=== PATIENT | female | born 1995 | race Caucasian/White ===

== ENCOUNTER 2022-07-08 02:42 | Outpatient (CLI) | payer MEDICAID, OTHER ==
[~2022-07-08] VITALS: Ht 149.9 cm; Wt 59.5 kg
[2022-07-08 02:30] VITALS: BP 117/68
[~2022-07-08 02:42] MED LIST: CETI10CA PO
[2022-07-08 03:04] LABS: BILIRUBIN,URINE NEGATIVE (NEGATIVE); CLARITY,URINE CLEAR; COLOR,URINE YELLOW; GLUCOSE, URINE (UA) NEGATIVE (NEGATIVE); KETONES,URINE NEGATIVE (NEGATIVE); LEUKOCYTE ESTERASE ,URINE 1+ (NEGATIVE); NITRITE,URINE NEGATIVE (NEGATIVE); PROTEIN,URINE NEGATIVE (NEGATIVE)
[2022-07-08 03:05] VITALS: BP 117/68
[2022-07-08 03:14] LABS: WBC,URINE 0-2 /HPF
[2022-07-08 03:15] LABS: BACTERIA,URINE TRACE /HPF
[2022-07-08] MEDS ORDERED: LACTATED RINGERS 1,000 ML IV ONE (03:30)
[2022-07-08 03:35] VITALS: BP 106/51
[2022-07-08] MEDS ORDERED: FAMO40TA72 PO (03:46)
[2022-07-08] MEDS ORDERED: NITR-65 PO (03:46)
[2022-07-08] MEDS ORDERED: METO-310 PO (03:46)
[2022-07-08] MEDS ORDERED: CITA20TA12 PO (03:46)
[2022-07-08] MEDS ORDERED: METR375C PO (03:46)
[2022-07-08 03:50] VITALS: BP 112/60
--- NOTE | 2022-07-09 08:32 | Physician Query-Final Dx ---
JOON07/09/22 0832: Clinic Account Progress/Dx Physician Query: Please give diagnosis Please include # weeks gestation Date of Service Jul 08, 2022 at 02:42 JOSSELINE HALL MD 07/09/22 1614: Clinic Account Progress/Dx DIAGNOSIS: Diagnosis Third trimester 33 weeks gestation Subjective contractions, no regular contractions during monitoring, cervix closed JOON,AugJul 09, 2022 08:32 JOSSELINE HALL MD Jul 09, 2022 16:14
== END 2022-07-08 04:40 | disposition home or self-care (01) ==
LOC: WSo 02:42 → LDRP 02:42 → WSo 04:40
PROVIDERS: ATTEND Family Medicine
DX: O47.03 False labor before 37 completed weeks of gestation, third trimester (principal); Z3A.33 33 weeks gestation of pregnancy
CPT/HCPCS: 81000; 87088

== ENCOUNTER 2022-08-15 05:36 | Outpatient (CLI) | payer MEDICAID ==
[~2022-08-15] VITALS: Ht 149.9 cm; Wt 59.5 kg
[~2022-08-15 05:36] MED LIST changes: +CITA20TA12 PO; +FAMO40TA72 PO; +METO-310 PO; +METR375C PO; +NITR-65 PO
== END 2022-08-15 14:12 | disposition home or self-care (01) ==
LOC: PREOP 05:36
PROVIDERS: ATTEND Obstetrics & Gynecology
DX: Z01.818 Encounter for other preprocedural examination (principal)

== ENCOUNTER 2022-08-22 05:36 | Inpatient (IN) | payer MEDICAID ==
[2022-08-22] VITALS (10 sets, daily range): BP systolic 11–131; BP diastolic 56–84
[~2022-08-22] VITALS: Ht 149.9 cm; Wt 61.6 kg
--- OUTSIDE RECORDS SUMMARY | 2022-08-22 05:39 | XMS REPORT | Clinical Summary ---
Author Author [facility] Organization [facility] Address Unknown Phone Unavailable Care Team Providers Care Talent Acquisition Associate Name Role Phone Alyse Hsieh MD PCP Allergies Comments Active Allergy Reactions Severity Noted Date Adhesive 08/11/2018 Sulfamethoxazole-Trimetho Hives 08/11/2018 prim Topiramate 05/27/2022 Tramadol Hives 08/11/2018 Medications End Date Status Medication Sig Dispensed Refills Start Date Active cetirizine (ZYRTEC) 10 MG Take 1 tablet 0 04/26 tablet (10 mg total) 2 by mouth daily. Active citalopram (CELEXA) 20 mg Take 1 tablet 0 04/26 tablet (20 mg total) 2 by mouth daily. Active famotidine (PEPCID) 40 MG Take 1 tablet 0 02/24 tablet (40 mg total) 2 by mouth daily. Active metroNIDAZOLE (FLAGYL) Take 1 tablet 14 tablet 0 1 500 MG tablet (500 mg 2 total) by mouth 2 (two) times a day. Active nitrofurantoin, Take 1 20 capsule 0 macrocrystal-monohydrate, capsule (100 2 (MACROBID) 100 MG capsule mg total) by mouth 2 (two) times a day. Active OMEPRAZOLE ORAL Take by 0 mouth. Active metoclopramide (REGLAN) 0 10 MG tablet 2 Active Problems Problem Noted Date Dysuria 03/30/2020 Last Assessment & Plan: Formatting of t his note might be different from the original. Recurrent. -03/30/2020 UA suspicious for UTI. Urine test negative. -03/30/2020 CBC positive for leukocytosis . -Dysuria with left flank pain, at risk for upper UTI. -03/30/2020 renal function and liver enzy me levels WNL. Plan: -Start cefdinir twice daily for 14 days with lactobacillus probiotics. -Pending chlamydia/gonorrhea PCR. -03/30/2020 ECG no QTc prolongation in ca se needing to switch to fluoroquinolones due to future antibiot ic susceptibility. -Urology referral due to her frequent U TI symptoms. At risk for prolonged QT interval syndrome 0 Frequent UTI 03/30/2020 Counseling for control, oral contraceptives Nexplanon removal 02/08/2020 control counseling 08/11/2018 Nexplanon insertion 08/11/2018 Vasovagal syncope 07/02/2016 Fatigue 09/29/2015 Depression 04/07/2015 Asthma 08/30/2006 Estimated Date of Delivery Comments Yes 08/24/2022 Encounters Care Team Description Date Type Specialty Freddie Powers MD Threatened labor (Primary Dx) 07/08/2022 Emergency Emergency Medicine Jaime Ferraro MD Asymptomatic bacteriuria during pregnanc y in third trimester (Primary Dx); Trichimoniasis 07/03/2022 Emergency Emergency Medicine Jaime Ferraro MD Dental caries (Primary Dx) 05/27/2022 Emergency Emergency Medicine from Last 3 Months Family History Medical History Relation Name Comments Lung cancer Maternal Grandmother Cervical cancer Mother Relation Name Status Comments Maternal Grandmother Mother Alive Social History Date Tobacco Use Types Packs/Day Years Used Smoking Tobacco: Every Cigarettes 0.5 3 Day Smokeless Tobacco: Never Tobacco Cessation: Ready to Quit: Yes Comments Alcohol Use Standard Drinks/Week occaisonal Yes 0 (1 standard drink = 0.6 o z pure alcohol) Estimated Date of Delivery Comments Yes 08/24/2022 Sex Assigned at Date Recorded Female 03/15/2019 7:42 AM CDT Last Filed Vital Signs Reading Time Taken Comments Vital Sign 130/80 07/08/2022 12:45 AM HAIR ROOTING MACHINE OPERATOR Blood Pressure 89 07/08/2022 12:45 AM HAIR ROOTING MACHINE OPERATOR Pulse 36.4 C (97.6 F) 07/08/2022 12:45 AM HAIR ROOTING MACHINE OPERATOR Temperature 16 07/08/2022 12:45 AM HAIR ROOTING MACHINE OPERATOR Respiratory Rate 98% 07/08/2022 12:45 AM HAIR ROOTING MACHINE OPERATOR Oxygen Saturation - - Inhaled Oxygen Concentration 59.4 kg (131 lb) 07/08/2022 12:13 AM HAIR ROOTING MACHINE OPERATOR Weight 149.9 cm (4' 11.02") 07/08/2022 12:13 AM HAIR ROOTING MACHINE OPERATOR Height 26.44 07/08/2022 12:13 AM HAIR ROOTING MACHINE OPERATOR Body Mass Index Plan of Treatment Health Maintenance Due Date Last Done Comments Hepatitis C Screen 1996 Td/Tdap# 1996 Tobacco Cessation 1996 Counseling # COVID-19 Vaccine (#1) 06/20/1997 Pneumococcal Vaccine: 2002 Pediatrics (0 to 5 Years) and At-Risk Patients (6 to 64 Years) (1 - PCV) HPV Vaccine (1 - 2-dose 12/20/2007 series) Cervical Cancer Screening 2017 via Pap Smear Social Determinants of 08/26/2021 Health# Influenza Vaccine (#1) 2022 05/27/2018, 08/11/2009 Procedures Comments Procedure Name Priority Date/Time Associated Diag nosis URINALYSIS MICROSCOPIC MAGDALENA 07/03/2022 ONLY 2:25 PM HAIR ROOTING MACHINE OPERATOR EXTRA URINE SPECIMEN IN STAT 07/03/2022 YELLOW W/OUT PRESERVATIVE 2:25 PM HAIR ROOTING MACHINE OPERATOR URINALYSIS REFLEX STAT 07/03/2022 2:25 PM HAIR ROOTING MACHINE OPERATOR CULTURE, URINE STAT 07/03/2022 2:25 PM HAIR ROOTING MACHINE OPERATOR from Last 3 Months Results * Extra Urine Specimen in Yellow w/out Preservative (07/03/2022 2:25 PM HAIR ROOTING MACHINE OPERATOR) Anatomical Location / Laterality Collection Method / Volume Anup ection Time Received Time Specimen (Source) Non-Blood Collection / Unknown 07/03/2022 2:25 PM HAIR ROOTING MACHINE OPERATOR 07/03/2022 2:33 PM HAIR ROOTING MACHINE OPERATOR Urine (Urine Clean Catch) Jaime Ferraro MD URINE ORDERABLES City/State/ZIP Code Phone Number Performing Address Organization [facility] [phone] [place] [id number] [facility] * (ABNORMAL) Urinalysis Microscopic Only (07/03/2022 2:25 PM HAIR ROOTING MACHINE OPERATOR) Pathologist Signature Component Value Ref Test Method Analysis Performed A t Range Time Microscopic RBC 0-5 0 - 5 07/03/2022 [facility] Urine /hpf 2:52 PM [facility] HAIR ROOTING MACHINE OPERATOR LAB Microscopic WBC 21-40 (A) 0 - 5 07/03/2022 [facility] Urine /hpf 2:52 PM [facility] HAIR ROOTING MACHINE OPERATOR LAB Epithelial Cells Large (A) Absent 07/03/2022 [facility] 2:52 PM [facility] HAIR ROOTING MACHINE OPERATOR LAB Hyaline Cast Absent Absent 07/03/2022 [facility] 2:52 PM [facility] HAIR ROOTING MACHINE OPERATOR LAB Bacteria Large (A) Absent 07/03/2022 [facility] 2:52 PM [facility] HAIR ROOTING MACHINE OPERATOR LAB Mucus Small (A) Absent 07/03/2022 [facility] 2:52 PM [facility] HAIR ROOTING MACHINE OPERATOR LAB Trichomonas Present (A) Absent 07/03/2022 [facility] 2:52 PM [facility] HAIR ROOTING MACHINE OPERATOR LAB Anatomical Location / Laterality Collection Method / Volume Anup ection Time Received Time Specimen (Source) Non-Blood Collection / Unknown 07/03/2022 2:25 PM HAIR ROOTING MACHINE OPERATOR 07/03/2022 2:32 PM HAIR ROOTING MACHINE OPERATOR Urine (Urine Clean Catch) Narrative [facility] - 07/03/2022 2:52 PM HAIR ROOTING MACHINE OPERATOR Culture ordered. Jaime Ferraro MD URINE ORDERABLES City/State/ZIP Code Phone Number Performing [place] [address] [facility] [address] [place] [address] LAB * (ABNORMAL) Urinalysis Reflex (07/03/2022 2:25 PM HAIR ROOTING MACHINE OPERATOR) Pathologist Signature Component Value Ref Test Method Analysis Performed A t Range Time Appearance, Urine Yellow Colorles 07/03/2022 [facility]NT[facility] s, 2:37 PM [facility] Yellow, HAIR ROOTING MACHINE OPERATOR LAB Dark Yellow Glucose Urine Negative Negative 07/03/2022 [facility] mg/dL 2:37 PM [facility] HAIR ROOTING MACHINE OPERATOR LAB Bilirubin Urine Negative Negative 07/03/2022 [facility] 2:37 PM [facility] HAIR ROOTING MACHINE OPERATOR LAB Ketones Urine Large (A) Negative 07/03/2022 [facility] 2:37 PM [facility] HAIR ROOTING MACHINE OPERATOR LAB Specific [place] 1.015 >1.005 - 07/03/2022 [facility] NT[facility] Urine <1.030 2:37 PM [facility] HAIR ROOTING MACHINE OPERATOR LAB Hemoglobin Urine Negative Negative 07/03/2022 [facility] 2:37 PM [facility] HAIR ROOTING MACHINE OPERATOR LAB PH Urine 7.5 5.0 - 07/03/2022 [facility] 8.0 2:37 PM [facility] HAIR ROOTING MACHINE OPERATOR LAB Protein Urine Qual Negative Negative 07/03/2022 [facility] mg/dL 2:37 PM [facility] HAIR ROOTING MACHINE OPERATOR LAB Urobilinogen Urine Normal Normal 07/03/2022 [facility] EU/dL 2:37 PM [facility] HAIR ROOTING MACHINE OPERATOR LAB Nitrite Urine Negative Negative 07/03/2022 [facility] 2:37 PM [facility] HAIR ROOTING MACHINE OPERATOR LAB Leukocyte Esterase Positive (A) Negative 07/03/2022 [facility] 2:37 PM [facility] HAIR ROOTING MACHINE OPERATOR LAB Anatomical Location / Laterality Collection Method / Volume Anup ection Time Received Time Specimen (Source) Non-Blood Collection / Unknown 07/03/2022 2:25 PM HAIR ROOTING MACHINE OPERATOR 07/03/2022 2:32 PM HAIR ROOTING MACHINE OPERATOR Urine (Urine Clean Catch) Jaime Ferraro MD URINE ORDERABLES City/State/ZIP Code Phone Number Performing Address Organization [place] [address] [facility] [address] [facility] * Culture, Urine (07/03/2022 2:25 PM HAIR ROOTING MACHINE OPERATOR) Pathologist Signature Component Value Ref Test Method Analysis Performed A t Range Time Culture growth Less than 07/05/2022 [facility] 10,000 8:58 AM CFU/mL Gram HAIR ROOTING MACHINE OPERATOR positive cocci Anatomical Location / Laterality Collection Method / Volume Anup ection Time Received Time Specimen (Source) Non-Blood Collection / Unknown 07/03/2022 2:25 PM HAIR ROOTING MACHINE OPERATOR 07/03/2022 2:33 PM HAIR ROOTING MACHINE OPERATOR Urine (Urine Clean Catch) Jaime Ferraro MD MICROBIOLOGY - GENERAL ORDE [facility] City/State/ZIP Code Phone Number [place]forming [place] [address] [place] [address] from Last 3 Months Insurance Type Payer Benefit Subscriber ID Effective Phone Address Plan / Dates Group MEDICAID [place]NAG[place] [id number] 2019-[address] ([place]) [address] [address] Care Teams Start Date End Date Talent Acquisition Associate Relationship Specialty 01/15/22 Alyse Hsieh MD PCP - General Family [address] [facility] [address] [place] [address]
--- OUTSIDE RECORDS SUMMARY | 2022-08-22 05:39 | XMS REPORT | Encounter Summary ---
Author Author [facility] Organization [facility] Address Unknown Phone Unavailable Care Team Providers Care Merchandise Deliverer Name Role Phone Alyse Hsieh MD PCP Reason for Visit * Reason Comments Contractions , 33 weeks, contrac tions started about an hour ago Encounter Details Care Team Description Date Type Department Freddie Powers MD [address] [place] [address] Threatened labor (Primary Dx) 07/08/2022 Emergency [address] [place] [address] Social History Date Tobacco Use Types Packs/Day Years Used Smoking Tobacco: Every Cigarettes 0.5 3 Day Smokeless Tobacco: Never Comments Alcohol Use Standard Drinks/Week occaisonal Yes 0 (1 standard drink = 0.6 o z pure alcohol) Sex Assigned at Date Recorded Female 03/15/2019 7:42 AM CDT documented as of this encounter Last Filed Vital Signs Reading Time Taken Comments Vital Sign 130/80 07/08/2022 12:45 AM MOLD WASHER Blood Pressure 89 07/08/2022 12:45 AM MOLD WASHER Pulse 36.4 C (97.6 F) 07/08/2022 12:45 AM MOLD WASHER Temperature 16 07/08/2022 12:45 AM MOLD WASHER Respiratory Rate 98% 07/08/2022 12:45 AM MOLD WASHER Oxygen Saturation - - Inhaled Oxygen Concentration 59.4 kg (131 lb) 07/08/2022 12:13 AM MOLD WASHER Weight 149.9 cm (4' 11.02") 07/08/2022 12:13 AM MOLD WASHER Height 26.44 07/08/2022 12:13 AM MOLD WASHER Body Mass Index documented in this encounter Medications at Time of Discharge Start Date End Date Medication Sig Dispensed Refills 05/14/2022 cetirizine (ZYRTEC) 10 MG Take 1 tablet 0 tablet (10 mg total) by mouth daily. 05/14/2022 citalopram (CELEXA) 20 mg Take 1 tablet 0 tablet (20 mg total) by mouth daily. 03/21/2022 famotidine (PEPCID) 40 MG Take 1 tablet 0 tablet (40 mg total) by mouth daily. 06/22/2022 metoclopramide (REGLAN) 0 10 MG tablet 07/03/2022 metroNIDAZOLE (FLAGYL) Take 1 tablet 14 tablet 0 500 MG tablet (500 mg total) by mouth 2 (two) times a day. 07/03/2022 nitrofurantoin, Take 1 20 capsule 0 macrocrystal-monohydrate, capsule (100 (MACROBID) 100 MG capsule mg total) by mouth 2 (two) times a day. OMEPRAZOLE ORAL Take by 0 mouth. documented as of this encounter ED Notes * Freddie Powers MD - 07/08/2022 12:31 AM CST 07/08/2022 [facility] History Chief Complaint Patient presents with Contractions , 33 weeks, contractions started about an hour ago HPI Patient is a 26-year-old female G5, P4 at 33 weeks presenting for evaluation of possible labor. The patient says that beginning approximately 2 hours prior to arrival she started having regular contractions which she describes as coming ab out every 1-1/2 to 2 minutes and lasting approximately 30 seconds. She has not had any loss of fluid or vaginal bleeding. This was complicated by na usea throughout as well as a subchorionic hemorrhage in early . The nick knott notes that she has had scheduled C-sections on all prior pregnancies due t o pelvic anatomy. She has been receiving her care at [facility] in [place]. She is an otherwise healthy female with history of asthma. Past Medical History: Diagnosis Date Asthma Past Surgical History: Procedure Laterality Date c section x3 Family History: Problem Relation Age of Onset Lung cancer Maternal Grandmother Cervical cancer Mother : Social History Tobacco Use Smoking status: Every Day Packs/day: 0.50 Years: 3.00 Pack years: 1.50 Types: Cigarettes Smokeless tobacco: Never Vaping Use Vaping Use: Former Substance Use Topics Alcohol use: Yes Comment: occaisonal Drug use: No Review of Systems A 10-point review of systems was completed and is otherwise negative except as n oted in HPI. Physical Exam BP (!) 135/92 (BP Location: Right arm) | Pulse 99 | Temp 97.6 F (36.4 C) ( Temporal) | Resp 20 | Ht 1.499 m (4' 11.02") | Wt 59.4 kg (131 lb) | LMP (Approximate) Comment: 33 weeks preg | SpO2 98% | BMI 26.44 kg/m Weight Method: Stated O2 Device: None (Room air) Physical Exam GEN: Awake, alert, appropriate, NAD HEENT: normocephalic, atraumatic, moist mucous membranes, pupils PERRL NECK: Supple, trachea midline CV: Appears well perfused, regular rate and rhythm, no murmurs PULM: clear to auscultation bilaterally, no increased work of breathing ABD: Gravid abdomen, uterine fundus well above the umbilicus : Normal external genital anatomy, cervix is high and posterior, unable to jing luate dilation MSK: No deformity or ecchymosis, moving all 4 extremities NEURO: Grossly nonfocal PSYCH: Logical, linear SKIN: [place], warm, dry ED Course Procedures MDM Patient presents with possible labor, history of recurrent C-sections due to pel [place] anatomy, no loss of fluid. Her history is concerning for labor and she requ ires evaluation at an OB center. She does not appear to be imminently deliverin g. Her vital signs are stable. I discussed the patient's case with the OB serv ice at [facility] and she will be transferred there for a la bor evaluation, accepting physician Dr. Flores. Per my custom, the patient and/or guardian was given specific information with r mildredards to their diagnosis and rationale for transfer. Risks and benefits of terry sfer were discussed including accidents, delays, loss of IV if present, and dete rioration of condition. EMTALA documentation was completed as separately noted. Patient questions were solicited and answered prior to transfer. Charting was completed using [employer]. The chart has been reviewed for e rrors but may contain dictation errors such as homophones, accidental inclusions /omissions. Approximate time spent caring for this patient including but not limited to exam ination, placing orders, documentation, review of testing and radiology results, reevaluation, patient discussion/education, discussions with consultants/admitt ing services/EMS, and time spent performing procedures: Time with Patient: 15 Minutes ED Clinical Impression 1. Threatened labor ED Disposition Transfer to Another Facility Freddie Powers MD 07/08/22 0034 WASHER documented in this encounter Plan of Treatment Not on filedocumented as of this encounter Visit Diagnoses Diagnosis Threatened labor - Primary Other threatened labor, unspecified as to episode of care documented in this encounter Care Teams Start Date End Date Merchandise Deliverer Relationship Specialty 01/15/22 Alyse Hsieh MD PCP - General Family [address] [facility] Medicine [address] [address] documented as of this encounter
--- OUTSIDE RECORDS SUMMARY | 2022-08-22 05:39 | XMS REPORT | Encounter Summary ---
Author Author [facility] Organization [facility] Address Unknown Phone Unavailable Care Team Providers Care Venereal Disease Control Head Name Role Phone Alyse Hsieh MD PCP Reason for Visit * Reason Comments Dizziness Pt presents to ER with comp laints of generalized weakness and dizziness, reports onset yesterday. Pt reports stefan t she was seen and evaluated by OBGYN yesterday from similar complaints . Pt denies complaints of abdominal pain/cramping and denies vaginal bleedi ng/discharge. LMP 10/2021 Encounter Details Care Team Description Date Type Department Jaime Ferraro MD [address] [place] [id number] Asymptomatic bacteriuria during pregnanc y in third trimester (Primary Dx); Trichimoniasis 07/03/[address] [place] [address] Social History Date Tobacco Use Types Packs/Day Years Used Smoking Tobacco: Every Cigarettes 0.5 3 Day Smokeless Tobacco: Never Comments Alcohol Use Standard Drinks/Week occaisonal Yes 0 (1 standard drink = 0.6 o z pure alcohol) Sex Assigned at Date Recorded Female 03/15/2019 7:42 AM CDT documented as of this encounter Last Filed Vital Signs Reading Time Taken Comments Vital Sign 115/72 07/03/2022 3:17 PM LAMINATION OPERATOR Blood Pressure 107 07/03/2022 3:17 PM LAMINATION OPERATOR Pulse 36.8 C (98.2 F) 07/03/2022 1:30 PM LAMINATION OPERATOR Temperature 23 07/03/2022 3:17 PM LAMINATION OPERATOR Respiratory Rate 98% 07/03/2022 3:17 PM LAMINATION OPERATOR Oxygen Saturation - - Inhaled Oxygen Concentration 59.4 kg (131 lb) 07/03/2022 1:30 PM LAMINATION OPERATOR Weight 149.9 cm (4' 11") 07/03/2022 1:30 PM LAMINATION OPERATOR Height 26.46 07/03/2022 1:30 PM LAMINATION OPERATOR Body Mass Index documented in this encounter Discharge Instructions * Attachments The following attachments cannot be sent through Care Everywhere.* Trichomonas Vaginal Infection (Trichomoniasis) (Welsh) documented in this encounter Medications at Time [...] by mouth 2 (two) times a day. documented as of this encounter ED Notes * Jaime Ferraro MD - 07/03/2022 6:49 PM CST 07/03/2022 [facility] History Chief Complaint Patient presents with Dizziness Pt presents to ER with complaints of generalized weakness and dizziness, repor ts onset yesterday. Pt reports that she was seen and evaluated by OBGYN yesterda y from similar complaints. Pt denies complaints of abdominal pain/cramping and d enies vaginal bleeding/discharge. LMP 10/2021 HPI 26 y.o. @ 34w c/o dizziness and lightheadedness. She states she has lost he r appetite and feels nauseous and hasn't been wanting to eat or drink anything. She has also had an intermittent dull diffuse abd. discomfort. Denies fevers, di arrhea, sick contacts. Denies dysuria, vaginal bleeding or discharge. Seen by OB yesterday and told that she needed to be eating more protein. She came to ED be cause her symptoms hadn't resolved after she ate yesterday evening and today. Past Medical History: Diagnosis Date Asthma Past [...] Drug use: No Review of Systems A full 10-point review of systems was performed and as per my standard practice, all pertinent positives and negatives are included in the HPI Physical Exam BP 115/72 | Pulse (!) 107 | Temp 98.2 F (36.8 C) (Temporal) | Resp 23 | Ht 1.499 m (4' 11") | Wt 59.4 kg (131 lb) | LMP 11/19/2021 (Approximate) Comme nt: 32 weeks preg | SpO2 98% | BMI 26.46 kg/m Weight Method: Stated O2 Device: None (Room air) Physical Exam General Appearance: Well developed. NAD Eyes: Normal inspection, no pallor or injection. ENT, Mouth: Mucous membranes are moist. Neck: Neck is supple with no midline tenderness. No JVD. Respiratory: Unlabored. There are no retractions, lungs are clear to auscultatio n. Cardiovascular: Regular rate and rhythm. No murmurs. Well perfused. Gastrointestinal: Gravid. Mild diffuse discomfort on palpation. No rebound or gu arding. Neurological: Alert and oriented. Speech fluent. No gross weakness. Skin: Warm and dry, no rashes, no petechiae. Musculoskeletal: Extremities are nontender. No edema. Psychiatric: Normal affect, there is no agitation. ED Course Procedures Labs Reviewed URINALYSIS REFLEX - Abnormal; Notable for the following components: Result Value Ketones Urine Large (*) Leukocyte Esterase Positive (*) All other components within normal limits URINALYSIS MICROSCOPIC ONLY - Abnormal; Notable for the following components: Microscopic WBC Urine 21-40 (*) Epithelial Cells Large (*) Bacteria Large (*) Mucus Small (*) Trichomonas Present (*) All other components within normal limits Narrative: Culture ordered. CULTURE, URINE Medications acetaminophen (TYLENOL) tablet 1,000 mg (1,000 mg Oral Given 07/03/22 141) ondansetron (ZOFRAN-ODT) disintegrating tablet 4 mg (4 mg Oral Not Given 07/03/22 1411) nitrofurantoin (macrocrystal-monohydrate) (MACROBID) 100 MG capsule 100 mg (100 mg Oral Given 07/03/22 1515) metroNIDAZOLE (FLAGYL) tablet 500 mg (500 mg Oral Given 07/03/22 1515) Filed VS 07/03/22 1457 07/03/22 151 BP: 111/71 115/72 Pulse: 89 (!) 107 Resp: 23 23 Temp: SpO2: 97% 98% MDM AF. VSS. Appears dehydrated and has diffuse abd discomfort without peritoneal si gns. Doubt surgical abdomen. She was given APAP and pain resolved. Declined anti emetics. UA shows +LE and bacteriuria as well as trich. No signs pyelo. Given fi rst dose of abx. Counseled regarding need for partner testing and treatment and abstinence for 2 weeks. She understands this as well as need for OB f/u in 3-5d and RTECP for worsening sx, fevers, PO intolerance. Time with Patient: 14 Minutes ED Clinical Impression 1. Asymptomatic bacteriuria during in third trimester 2. Trichimoniasis ED Disposition Discharge Jaime Ferraro MD 07/03/221901 NATION OPERATOR * Gisselle Chavez RN - 07/03/2022 2:20 PM CST Pt to bathroom, instructed on clean catch urine collection and verbalized unders tanding. Urine specimen collected and sent to lab NATION OPERATOR * Gisselle Chavez RN - 07/03/2022 1:50 PM CST Pt presents to ER with complaints of generalized weakness and dizziness, reports onset yesterday. Pt currently 32 weeks preg.Pt reports that she was seen and ev aluated by OBGYN yesterday from similar complaints. Pt denies complaints of abdo leonides pain/cramping and denies vaginal bleeding/discharge. LMP 10/2021 NATION OPERATOR documented in this encounter Plan of Treatment Not on filedocumented as of this encounter Procedures Comments Procedure Name Priority Date/Time Associated Diag nosis EXTRA URINE SPECIMEN IN STAT 07/03/2022 YELLOW W/OUT PRESERVATIVE 2:25 PM LAMINATION OPERATOR URINALYSIS MICROSCOPIC MAGDALENA 07/03/2022 ONLY 2:25 PM LAMINATION OPERATOR URINALYSIS REFLEX STAT 07/03/2022 2:25 PM LAMINATION OPERATOR CULTURE, URINE STAT 07/03/2022 2:25 PM LAMINATION OPERATOR documented in this encounter Results * (ABNORMAL) Urinalysis Microscopic Only (07/03/2022 2:25 PM LAMINATION OPERATOR) Pathologist Signature Component Value Ref Test Method Analysis Performed A t Range Time Microscopic RBC 0-5 0 - 5 07/03/2022 [facility] Urine /hpf 2:52 PM [facility] [place] LAMINATION OPERATOR LAB Microscopic WBC 21-40 (A) 0 - 5 07/03/2022 [facility] TY Urine /hpf 2:[address] [facility] LAMINATION OPERATOR LAB Epithelial Cells Large (A) Absent 07/03/2022 [facility] NT 2:52 PM [facility] LAMINATION OPERATOR LAB Hyaline Cast Absent Absent 07/03/2022 [facility] 2:52 PM [facility] LAMINATION OPERATOR LAB Bacteria Large (A) Absent 07/03/2022 [facility] 2:52 PM [facility] LAMINATION OPERATOR LAB Mucus Small (A) Absent 07/03/2022 [facility] 2:52 PM [facility] LAMINATION OPERATOR LAB Trichomonas Present (A) Absent 07/03/2022 [facility] 2:52 PM [facility] LAMINATION OPERATOR LAB Anatomical Location / Laterality Collection Method / Volume Anup ection Time Received Time Specimen (Source) Non-Blood Collection / Unknown 07/03/2022 2:25 PM LAMINATION OPERATOR 07/03/2022 2:32 PM LAMINATION OPERATOR Urine (Urine Clean Catch) Narrative [facility] - 07/03/2022 2:52 PM LAMINATION OPERATOR Culture ordered. Jaime Ferraro MD URINE ORDERABLES City/State/ZIP Code Phone Number Performing Address Organization [place] [id number] [facility] [address] [facility] * Extra Urine Specimen in Yellow w/out Preservative (07/03/2022 2:25 PM LAMINATION OPERATOR) Anatomical Location / Laterality Collection Method / Volume Anup ection Time Received Time Specimen (Source) Non-Blood Collection / Unknown 07/03/2022 2:25 PM LAMINATION OPERATOR 07/03/2022 2:33 PM LAMINATION OPERATOR Urine (Urine Clean Catch) Jaime Ferraro MD URINE ORDERABLES City/State/ZIP Code Phone Number Performing Address Organization [place] [id number] [facility] [address] [facility] * (ABNORMAL) Urinalysis Reflex (07/03/2022 2:25 PM LAMINATION OPERATOR) Pathologist Signature Component Value Ref Test Method Analysis Performed A t Range Time Appearance, Urine Yellow Colorles 07/03/2022 [facility] s, 2:37 PM [facility] Yellow, LAMINATION OPERATOR LAB Dark Yellow Glucose Urine Negative Negative 07/03/2022 [facility] mg/dL 2:37 PM [facility] LAMINATION OPERATOR LAB Bilirubin Urine Negative Negative 07/03/2022 [facility] 2:37 PM [facility] LAMINATION OPERATOR LAB Ketones Urine Large (A) Negative 07/03/2022 [facility] 2:37 PM [facility] LAMINATION OPERATOR LAB Specific [place] 1.015 >1.005 - 07/03/2022 [facility] NT[facility] Urine <1.030 2:37 PM [facility] [place] LAMIN[facility] OPERATOR LAB Hemoglobin Urine Negative Negative 07/03/2022 [facility] 2:37 PM [facility] LAMINATION OPERATOR LAB PH Urine 7.5 5.0 - 07/03/2022 [facility] 8.0 2:37 PM [facility] LAMINATION OPERATOR LAB Protein Urine Qual Negative Negative 07/03/2022 [facility] mg/dL 2:37 PM [facility] LAMINATION OPERATOR LAB Urobilinogen Urine Normal Normal 07/03/2022 [facility] EU/dL 2:37 PM [facility] LAMINATION OPERATOR LAB Nitrite Urine Negative Negative 07/03/2022 [facility] 2:37 PM [facility] LAMINATION OPERATOR LAB Leukocyte Esterase Positive (A) Negative 07/03/2022 [facility] 2:37 PM [facility] LAMINATION OPERATOR LAB Anatomical Location / Laterality Collection Method / Volume Anup ection Time Received Time Specimen (Source) Non-Blood Collection / Unknown 07/03/2022 2:25 PM LAMINATION OPERATOR 07/03/2022 2:32 PM LAMINATION OPERATOR Urine (Urine Clean Catch) Jaime Ferraor MD URINE ORDERABLES City/State/ZIP Code Phone Number Performing Address Organization [place] [id number] LAB * Culture, Urine (07/03/2022 2:25 PM LAMINATION OPERATOR) Pathologist Signature Component Value Ref Test Method Analysis Performed A t Range Time Culture growth Less than 07/05/2022 [facility] 10,000 8:58 AM CFU/mL Gram LAMINATION OPERATOR positive cocci Anatomical Location / Laterality Collection Method / Volume Anup ection Time Received Time Specimen (Source) Non-Blood Collection / Unknown 07/03/2022 2:25 PM LAMINATION OPERATOR 07/03/2022 2:33 PM LAMINATION OPERATOR Urine (Urine Clean Catch) Jaime Ferraro MD [facility] City/State/ZIP Code Phone Number Performing [place] [address] [place] [address] documented in this encounter Visit Diagnoses Diagnosis Asymptomatic bacteriuria during pregnan cy in third trimester - Primary Trichimoniasis Unspecified trichomoniasis documented in this encounter Administered Medications Action Date Dose Rate Site Medication Order MAR Action 07/03/2022 2:11 PM LAMINATION OPERATOR 1,000 mg acetaminophen (TYLENOL) tablet 1,000 mg Given 1,000 mg, Oral, Once, On Sat07/03/22 at 1408, For 1 dose, Do not exceed 4 GM/DA Y of acetaminophen. If 65 or older do no t exceed 3 GM/DAY. If chronic alcoholic d o not exceed 2 GM/DAY. 07/03/2022 3:15 PM LAMINATION OPERATOR 500 mg metroNIDAZOLE (FLAGYL) tablet 500 mg Given 500 mg, Oral, Once, Indications: STD, O n Sat07/03/22 at 1507, For 1 dose, Avoid Alcohol in Food and Drinks 07/03/2022 3:15 PM LAMINATION OPERATOR 100 mg nitrofurantoin Given (macrocrystal-monohydrate) (MACROBID) 100 MG capsule 100 mg 100 mg, Oral, Once, Indications: UTI, O n e 07/03/22 at 1507, For 1 dose, Give with food Swallow capsule whole documented in this encounter Active and Recently Administered Medications Due to Daylight Saving Time, this section may contain times in both CDT and LAMINATION OPERATOR. 07/02/2022 07/03/2022 Medication Order 07/01/2022 1411 (Given - Provider: Gisselle Chavez, DAMARIS) acetaminophen (TYLENOL) tablet 1,000 mg (COMPLETED) 1,000 mg, Oral, Once, On Sat07/03/22 at 1408, For 1 dose, Do not exceed 4 GM/DA Y of acetaminophen. If 65 or older do no t exceed 3 GM/DAY. If chronic alcoholic d o not exceed 2 GM/DAY. 1515 (Given - Provider: Gisselle Chavez, DAMARIS) metroNIDAZOLE (FLAGYL) tablet 500 mg (COMPLETED) 500 mg, Oral, Once, Indications: STD, O n Sat07/03/22 at 1507, For 1 dose, Avoid Alcohol in Food and Drinks 1515 (Given - Provider: Gisselle Chavez RN) nitrofurantoin (macrocrystal-monohydrate) (MACROBID) 100 MG capsule 100 mg (COMPLETED) 100 mg, Oral, Once, Indications: UTI, O n Sat07/03/22 at 1507, For 1 dose, Give with food Swallow capsule whole documented in this encounter Care Teams Start Date End Date Venereal Disease Control Head Relationship Specialty 01/15/22 Alyse Hsieh MD PCP - General Family [address] [facility] [address] [address] documented as of this encounter
[2022-08-22] MEDS: LACTATED RINGERS 1,000 ML IV PRN ×2 (06:05→07:52)
[2022-08-22] MEDS ORDERED: metroNIDAZOLE 500MG/100ML IVPB 100 ML IV ONE (06:30)
[2022-08-22] MEDS ORDERED: ceFAZolin INJECTION 1,000 MG in NS (IVPB) 50 ML IV ONE (06:30)
[2022-08-22] MEDS ORDERED: fentaNYL INJ 100 MCG/2 ML AMP ONE (06:51)
[2022-08-22] MEDS ORDERED: CITRIC ACID/SOB CIT (BICITRA) 30 ML UDC PO ONE (07:00)
[2022-08-22] MEDS ORDERED: LACTATED RINGERS 1,000 ML IV PRN (07:00)
[2022-08-22] MEDS ORDERED: FAMOTIDINE 20MG/2ML IV (PEPCID) IV ONE (07:00)
[2022-08-22] MEDS ORDERED: METOCLOPRAMIDE INJ 10 MG/2 ML (REGLAN) IV ONE (07:00)
[2022-08-22] MEDS ORDERED: FAMOTIDINE 20MG/2ML IV (PEPCID) ONE (07:02)
[2022-08-22] MEDS ORDERED: CITRIC ACID/SOB CIT (BICITRA) 30 ML UDC ONE (07:02)
[2022-08-22] MEDS ORDERED: METOCLOPRAMIDE INJ 10 MG/2 ML (REGLAN) ONE (07:02)
[2022-08-22] MEDS ORDERED: OXYTOCIN PRE-MIX DRIP 500 ML IV ONE (07:05)
[2022-08-22] MEDS ORDERED: ROPIVACAINE 5MG/ML 30ML VIAL ONE (07:17)
--- NOTE | 2022-08-22 07:28 | History & Physical-OB ---
OB - Chief Complaint & HPI Date/Time Date of Admission: Date of Admission: Aug 22, 2022 at 05:36 Date seen by a Provider: Aug 22, 2022 Time Seen by a Provider: 07:12 Chief Complaint/History OB-Reason for Admission/Chief: Section Hx : 5 Hx Para: 3 Expected Date of Delivery: Aug 26, 2022 Gestational Age in Weeks: 39 Gestational Age in Days: 3 Indication for : desires repeat Admission Nurse Assessment Rev: Yes Allergies and Home Medications Allergies Coded Allergies: adhesive (Verified Allergy, Unknown, 08/15/22) sulfamethoxazole (Verified Allergy, Unknown, 08/15/22) topiramate (Verified Allergy, Unknown, 08/15/22) tramadol (Verified Allergy, Unknown, 08/15/22) trimethoprim (Verified Allergy, Unknown, 08/15/22) Patient Home Medication List Home Medication List Reviewed: Yes Cetirizine HCl (Zyrtec) 10 Mg Capsule, 10 MG PO DAILY, (Reported) Entered as Reported by: Lulú Valdez on 07/08/22345 Citalopram Hydrobromide (Celexa) 20 Mg Tablet, 20 MG PO DAILY, (Reported) Entered as Reported by: Lulú Valdez on 07/08/22345 Famotidine (Pepcid) 40 Mg Tablet, 40 MG PO DAILY, (Reported) Entered as Reported by: Lulú Valdez on 07/08/22345 Metoclopramide HCl (Reglan) 10 Mg Tablet, 10 MG PO, (Reported) Entered as Reported by: Lulú Valdez on 07/08/22345 Discontinued Medications Metronidazole (Flagyl) 375 Mg Capsule, 500 MG PO BID, (Reported) Discontinued Reason: No Longer Taking Entered as Reported by: Lulú Valdez on 07/08/22345 Nitrofurantoin Monohyd/M-Cryst (Macrobid 100 mg Capsule) 100 Mg Capsule, 1 TAB PO BID, (Reported) Discontinued Reason: No Longer Taking Entered as Reported by: Lulú Valdez on 07/08/22345 OB - History Hx of Present Care: Yes (with Dr. Gotti at [facility]) Ultrasounds: Normal mid trimester US Obstetrical Complications: None Medical Complications: None Patient Past Medical History n/a Social History/Family History 2nd Hand Smoke Exposure: Yes Immunizations Influenza Vaccine Up-to-Date: Yes; Up-to-Date First/Initial COVID19 Vaccine: 2020 OB - Admission Exam Physical Exam Vitals: Vital Signs 08/22/22 06:00 Temp 36.7 Pulse 106 Resp 18 Pulse Ox 96 O2 Delivery Room Air HEENT: NCAT Heart: Rhythm Normal Lungs: Clear Abdomen: Gravid Extremities: Normal Reflexes: Normal Heart Rate: 130's Accelerations: Accelerations Present Decelerations: No Decelerations Short Term Variability: Present Coroner Technician Variability: Average (6-25) Contractions on Admission: 6-10 Minutes Apart Intensity: Moderate OB - Assessment/Plan/Diagnosis Assessment Assessment: section Admission Dx 26 yo @ 39 weeks Previous x 3 Admission Status: Inpatient Order (span 2 midnights) Reason for Inpatient Admission: RLTCS Plan Plan: Section TRAY DELAROSA DO Aug 22, 2022 07:28
[2022-08-22 07:30] LABS: BASOPHILS # (AUTO) 0.1 10^3/uL (0.0-0.1); BASOPHILS % (AUTO) 1 % (0-10); EOSINOPHILS # (AUTO) 0.1 10^3/uL (0.0-0.3); EOSINOPHILS % (AUTO) 1 % (0-10); HEMATOCRIT 33 % (35-52); HEMOGLOBIN 10.2 g/dL (11.5-16.0); LYMPHOCYTES # (AUTO) 2.9 10^3/uL (1.0-4.0); LYMPHOCYTES % (AUTO) 24 % (12-44); MEAN CORPUSCULAR HEMOGLOBIN 26 pg (25-34); MEAN CORPUSCULAR HGB CONC 31 g/dL (32-36); MEAN CORPUSCULAR VOLUME 82 fL (80-99); MEAN PLATELET VOLUME 11.8 fL (9.0-12.2); MONOCYTES # (AUTO) 1.1 10^3/uL (0.0-1.0); MONOCYTES % (AUTO) 9 % (0-12); NEUTROPHILS # (AUTO) 7.9 10^3/uL (1.8-7.8); NEUTROPHILS % (AUTO) 65 % (42-75); PLATELET COUNT 236 10^3/uL (130-400); WHITE BLOOD COUNT 12.2 10^3/uL (4.3-11.0)
[2022-08-22] MEDS ORDERED: MEASLES,MUMPS,RUBELLA 1 EA INJ SC SCH (07:30)
[2022-08-22] MEDS ORDERED: TETANUS,DIPTH,PERTUSS P/F (BOOSTRIX) 0.5 ML VIAL IM SCH (07:30)
[2022-08-22] MEDS ORDERED: OXYTOCIN PRE-MIX DRIP 500 ML IV SCH (07:30)
[2022-08-22] MEDS ORDERED: ONDANSETRON 4 MG/2 ML (SDV) Z0FRAN IVP PRN ×2 (07:30→09:00)
[2022-08-22] MEDS ORDERED: NALOXONE 0.4 MG/ML 1 ML (NARCAN) VIAL IV PRN (07:30)
[2022-08-22 07:31] LABS: BILIRUBIN,URINE NEGATIVE (NEGATIVE); CLARITY,URINE CLEAR; COLOR,URINE YELLOW; GLUCOSE, URINE (UA) NEGATIVE (NEGATIVE); KETONES,URINE NEGATIVE (NEGATIVE); LEUKOCYTE ESTERASE ,URINE 3+ (NEGATIVE); NITRITE,URINE NEGATIVE (NEGATIVE); PROTEIN,URINE NEGATIVE (NEGATIVE)
[2022-08-22 07:42] LABS: BACTERIA,URINE MODERATE /HPF; RBC,URINE RARE /HPF
[2022-08-22] MEDS ORDERED: ONDANSETRON 4 MG/2 ML (SDV) Z0FRAN ONE (07:55)
[2022-08-22] MEDS ORDERED: PHENYLEPHRINE 100 MCG/ML 10 ML (ANESTHESIA) SYR ONE (08:01)
[2022-08-22] MEDS ORDERED: diphenhydrAMINE 50 MG/ML INJ (BENADRYL) ONE (08:19)
--- NOTE | 2022-08-22 08:43 | Discharge Inst-Women's Service ---
Discharge Inst-Women's Serv Depart Medication/Instructions New, Converted or Re-Newed RX: Transmitted to Pharmacy Final Diagnosis POD 2 RLTCS Problems Reviewed?: Yes Consults/Follow Up Additional Follow Up: Yes Orders/Referrals Dr. Flores in 7-10 days and [facility] in 6 weeks Activity Activity: Activity as Tolerated Driving Instructions: No Driving for 1 Week NO SMOKING: NO SMOKING Nothing Inside Vagina: No Douching, No Zwingle, No Tampons Diet Discharge Diet: No Restrictions Symptoms to Report to : Bleeding Excessive, Pain Increased, Fever Over 101 Degrees F, Vaginal Bleeding Increase, Questions/Concerns For Any Problems or Questions: Contact Your Physician Skin/Wound Care Infection Signs and Symptoms: Increased Redness, Foul Odor of Wound, Increased Drainage, Skin Itchy or Has a Rash, Increased Swelling, Temperature Above 101 F Operative Area Clean and Dry: Keep Incision Clean/Dry Stitches/Ilia/Dermabond: Dermabond, Care of Stitches Bathing Instructions: TRAY Vazquez DO Aug 22, 2022 08:43
[2022-08-22] MEDS ORDERED: DOCU100C37 PO (08:45)
[2022-08-22] MEDS ORDERED: IBUP-844 PO (08:45)
[2022-08-22] MEDS ORDERED: ACHD5005 PO (08:45)
[2022-08-22] MEDS ORDERED: HYDROmorphone 2 MG/ML VIAL (DILAUDID) IV ONE (09:00)
[2022-08-22] MEDS ORDERED: KETOROLAC 30 MG/ML VIAL IVP ONE (09:00)
[2022-08-22] MEDS: KETOROLAC 30 MG/ML VIAL IV SCH ×2 (10:04→17:35)
[2022-08-22] MEDS: HYDROcodone/APAP 5 MG/325 MG (LORTAB) TAB PO PRN ×2 (11:33→17:36)
[2022-08-22] MEDS: diphenhydrAMINE 50 MG/ML INJ (BENADRYL) IVP PRN ×2 (12:31→17:36)
[2022-08-22] MEDS ORDERED: CATHETER FLUSH 10 ML SYR IV SCH (14:00)
--- NOTE | 2022-08-22 16:36 | OPERATIVE REPORT ---
PREOPERATIVE DIAGNOSES: 1. A 26-year-old at 39 weeks gestation. 2. Previous section x3. POSTOPERATIVE DIAGNOSES: 1. A 26-year-old at 39 weeks gestation. 2. Previous section x3. PROCEDURE: Repeat low transverse section. SURGEON: Dr. Stuart Delarosa. GAS ROLLER OPERATOR: Mariaa Zuleta DNP, was necessary for manipulation and retraction throughout the procedure. ANESTHESIA: Spinal. ESTIMATED BLOOD LOSS: 600 mL URINE OUTPUT: 100 mL clear at the end of the procedure. FLUIDS: 1400 mL lactated Ringer's solution. FINDINGS: Live male , weight and Apgars were pending. Grossly normal appearing uterus, bilateral fallopian tubes and ovaries. SPECIMEN SENT: None. INDICATIONS FOR PROCEDURE: This 26-year-old female is the patient who had sought care at the [facility] with Dr. Gotti. Her was uncomplicated with the exception of need for repeat due to three prior cesareans. I discussed with the patient a preoperative visit. Risks of the procedure including risk of bleeding, infection, damage to structures including but not limited to bowel, bladder, ureter or kidney, possible need for reoperation, postoperative complications that may occur, recovery time frame, risks from anesthesia and even . After everything was discussed with the patient in detail, consent was obtained. the patient was taken to the operating room. OPERATIVE REPORT IN DETAIL: Once in the operating room, spinal analgesia was found to be adequate, was placed in the supine position with leftward tilt, prepped and draped in normal sterile fashion. A timeout was performed. Anesthesia was tested. I then make a Pfannenstiel skin incision through the previously existing scar using a knife and carried to underlying fascia using Bovie cautery. Fascial incision extended laterally using Bovie cautery. Superior aspect of the fascial incision was then grasped with Rosanna clamps, tented up and dissected off the underlying rectus muscles. The inferior aspect of fascial incision was then grasped with Rosanna clamps, tented up and dissected off the underlying rectus muscles. The rectus muscles were dissected off the midline sharply which exposed the peritoneum, which entered bluntly and extended using blunt traction. Panchito ring retractor was placed within the peritoneal incision which offers excellent lateral sidewall retraction, identified lower uterine segment, was found to be thinned out. I make a low transverse incision to the vesicouterine peritoneum and bluntly dissected this off the lower uterine segment, creating a bladder flap. I then proceeded myotomy until membranes were visualized, at which point I extended the uterine incision laterally and superiorly using bandage scissors. Amniotomy was then performed using an Allis clamp. Clear fluid was noted. Infant was found in vertex presentation with the head was elevated up to the incision and was delivered through the incision. The nares and oropharynx were bulb suctioned. Nuchal cord was reduced x1. Anterior and posterior shoulders were delivered. The was brought to the operative field where the cord was doubly clamped and cut and infant was handed off to waiting nurses in attendance. Cord bloods were collected. Three-vessel cord intact placenta was delivered spontaneously thereafter. IV Pitocin was initiated to facilitate uterine contraction. Uterine fundus confirmed by bimanual massage. The uterus was then exteriorized and cleared of all endometrial clots and debris. I then proceeded with closing the uterine incision using 0 Vicryl suture in a running locked fashion. Second layer of imbricating 0 Monocryl was placed. Excellent hemostasis was noted after doing this. I then placed the uterus back in the pelvis and copiously irrigated the pelvis using normal saline. Once again, there was no active bleeding noted from any of my dissection planes. I placed Interceed antiadhesive over a low transverse incision. I removed the Panchito ring retractor and then proceeded with closing the peritoneum using 3-0 Vicryl suture in a running fashion. The rectus muscle was reapproximated using 3-0 Vicryl suture in interrupted fashion. The fascia was reapproximated using 0 Vicryl suture in a running fashion. The skin was reapproximated using 4-0 Monocryl in a running subcuticular. Dermabond was applied to this and a sterile dressing with adhesive white tape. The patient tolerated the procedure well and was sent to recovery area in stable condition. Lap and sponge counts were correct at the end of procedure, instrument counts were correct as well. Two grams of Ancef were given preoperatively for infection prophylaxis. Job ID: [id number] DocumentID: [id number] Dictated Date: 08/22/2022 08:49:47 Radio Communications Superintendent Date: 08/22/2022 16:34:00 Dictated By: STUART DELAROSA DO
[2022-08-22] MEDS: DOCUSATE SODIUM 100 MG (COLACE) CAP PO SCH (20:39)
[2022-08-23] MEDS: KETOROLAC 30 MG/ML VIAL IV SCH ×2 (00:29→06:18)
[2022-08-23 00:30] VITALS: BP 104/57
[2022-08-23] MEDS: HYDROcodone/APAP 5 MG/325 MG (LORTAB) TAB PO PRN ×3 (00:32→17:39)
[2022-08-23] MEDS: SIMETHICONE 80 MG (MYLICON) CHEW PO PRN ×3 (03:04→17:38)
[2022-08-23] MEDS: diphenhydrAMINE 50 MG/ML INJ (BENADRYL) IVP PRN (03:05)
[2022-08-23 03:15] VITALS: BP 124/82
[2022-08-23 06:05] LABS: BASOPHILS # (AUTO) 0.1 10^3/uL (0.0-0.1); BASOPHILS % (AUTO) 0 % (0-10); EOSINOPHILS # (AUTO) 0.3 10^3/uL (0.0-0.3); EOSINOPHILS % (AUTO) 2 % (0-10); HEMATOCRIT 28 % (35-52); HEMOGLOBIN 8.8 g/dL (11.5-16.0); LYMPHOCYTES # (AUTO) 2.6 10^3/uL (1.0-4.0); LYMPHOCYTES % (AUTO) 17 % (12-44); MEAN CORPUSCULAR HEMOGLOBIN 26 pg (25-34); MEAN CORPUSCULAR HGB CONC 32 g/dL (32-36); MEAN CORPUSCULAR VOLUME 83 fL (80-99); MEAN PLATELET VOLUME 11.3 fL (9.0-12.2); MONOCYTES % (AUTO) 7 % (0-12); NEUTROPHILS # (AUTO) 11.6 10^3/uL (1.8-7.8); NEUTROPHILS % (AUTO) 74 % (42-75); PLATELET COUNT 191 10^3/uL (130-400); WHITE BLOOD COUNT 15.6 10^3/uL (4.3-11.0)
--- NOTE | 2022-08-23 07:44 | Anesthesia-Regional Post-Op ---
Regional Patient Condition Mental Status: Alert, Oriented x3 Circulation: Same as Pre-Op Headache: Absent Sensation: Full Recovery Motor Block: Absent Post Op Complications Complications None Follow Up Care/Instructions Patient Instructions None needed. Anesthesia/Patient Condition Patient is doing well, no complaints, stable vital signs, no apparent adverse anesthesia problems. No complications reported per nursing. JACINTO DE JESUS CRNA Aug 23, 2022 07:44
--- NOTE | 2022-08-23 08:30 | Postpartum Progress Note ---
Note Note Day # 1 Subjective: Patient is without complaints. Ambulating, voiding. Tolerating a regular diet without nausea or vomiting. Normal lochia. Pain is well controlled with oral pain medications. Objective: Physical Exam: General - Alert and oriented, no apparent distress Abdomen - Soft, appropriately tender to palpation, non-distended, fundus firm at umbilicus Extremities - no edema, negative Mariam's bilaterally Assessment: POD 1 RLTCS Acute blood loss anemia Recovering well, hemodynamically stable Plan: Routine care. Encourage breast feeding. Encourage ambulation. Ferrous sulfate supplementation. Plan for discharge tomorrow. Vitals - Labs Vital Signs - I&O Vital Signs Date Time Temp Pulse Resp B/P (MAP) Pulse Ox O2 Delivery O2 Flow Rate FiO2 08/23/22 03:15 36.4 91 16 124/82 (96) 99 Room Air 08/23/22 00:30 36.9 90 16 104/57 (73) 97 Room Air 08/22/22 20:35 36.0 81 16 131/78 (95) 100 Room Air 08/22/22 17:27 36.8 87 18 111/59 (76) 98 Room Air 08/22/22 12:30 36.4 95 18 111/56 (74) 96 Room Air 08/22/22 10:50 36.6 81 16 114/62 (79) 99 Room Air 08/22/22 10:05 36.9 84 16 127/76 (93) 99 Room Air 08/22/22 09:30 36.7 16 110/77 (88) 98 Room Air 08/22/22 09:15 36.7 86 16 109/77 (88) 98 Room Air 08/22/22 09:15 36.7 16 109/77 (88) 98 Room Air 08/22/22 09:00 36.5 16 115/74 (88) 99 Room Air 08/22/22 08:45 36.2 16 111/84 (93) 98 Room Air I & O 08/23/22 07:00 Intake Total 5450 ml Output Total 2150 ml Balance 3300 ml Labs Laboratory Tests 08/23/22 05:46: White Blood Count 15.6H, Red Blood Count 3.34L, Hemoglobin 8.8L, Hematocrit 28L, Mean Corpuscular Volume 83, Mean Corpuscular Hemoglobin 26, Mean Corpuscular Hemoglobin Concent 32, Red Cell Distribution Width 15.3H, Platelet Count 191, Mean Platelet Volume 11.3, Immature Granulocyte % (Auto) 1, Neutrophils (%) (Auto) 74, Lymphocytes (%) (Auto) 17, Monocytes (%) (Auto) 7, Eosinophils (%) (Auto) 2, Basophils (%) (Auto) 0, Neutrophils # (Auto) 11.6H, Lymphocytes # (Auto) 2.6, Monocytes # (Auto) 1.0, Eosinophils # (Auto) 0.3, Basophils # (Auto) 0.1, Immature Granulocyte # (Auto) 0.2H Microbiology 08/22/22 Urine Culture - Preliminary, Resulted Gram Pos Mixed Bacterial Elsi YEAST MAIKEL PHAN Aug 23, 2022 08:30
[2022-08-23] MEDS: DOCUSATE SODIUM 100 MG (COLACE) CAP PO SCH ×2 (09:47→21:18)
[2022-08-23 12:02] VITALS: BP 112/75
[2022-08-23] MEDS: IBUPROFEN 600 MG (MOTRIN) TAB PO SCH ×2 (12:03→17:39)
[2022-08-23 17:37] VITALS: BP 106/63
[2022-08-23] MEDS ORDERED: diphenhydrAMINE 25 MG TAB (BENADRYL) PO ONE (20:41)
[2022-08-23] MEDS: diphenhydrAMINE 25 MG TAB (BENADRYL) PO PRN (20:44)
[2022-08-24 00:10] VITALS: BP 115/63
[2022-08-24] MEDS: IBUPROFEN 600 MG (MOTRIN) TAB PO SCH ×3 (00:12→11:05)
[2022-08-24] MEDS: SIMETHICONE 80 MG (MYLICON) CHEW PO PRN ×2 (00:12→08:34)
[2022-08-24] MEDS: HYDROcodone/APAP 5 MG/325 MG (LORTAB) TAB PO PRN ×2 (03:51→11:05)
[2022-08-24 06:03] VITALS: BP 114/64
[2022-08-24] MEDS: diphenhydrAMINE 25 MG TAB (BENADRYL) PO PRN (08:34)
[2022-08-24] MEDS: DOCUSATE SODIUM 100 MG (COLACE) CAP PO SCH (08:34)
[2022-08-24 11:04] VITALS: BP 119/71
--- NOTE | 2022-08-24 11:07 | Postpartum Progress Note ---
Note Note Day # 2 Subjective: Patient is without complaints. Ambulating, voiding. Tolerating a regular diet without nausea or vomiting. Normal lochia. Pain is well controlled with oral pain medications. Physical Exam: General - Alert and oriented, no apparent distress Abdomen - Soft, appropriately tender to palpation, non-distended, fundus firm at umbilicus; incision c/d/i Extremities - no edema, negative Mariam's bilaterally Assessment: Post- day # 2, status post RLTCS Recovering well, hemodynamically stable Acute blood loss anemia Plan: Routine care. Encourage breast feeding. Encourage ambulation. Ferrous sulfate supplementation. Plan for discharge today Vitals - Labs Vital Signs - I&O Vital Signs Date Time Temp Pulse Resp B/P (MAP) Pulse Ox O2 Delivery O2 Flow Rate FiO2 08/24/22 06:03 36.8 84 18 114/64 (81) 98 Room Air 08/24/22 00:10 36.5 84 18 115/63 (80) 99 Room Air 08/23/22 17:37 36.7 80 18 106/63 (77) 98 Room Air 08/23/22 12:02 36.4 90 18 112/75 (87) 98 Room Air Labs Microbiology 08/22/22 Urine Culture - Final, Complete Gram Pos Mixed Bacterial Elsi YEAST JOSÉ MIGUEL PERALTA APRN Aug 24, 2022 11:07
== END 2022-08-24 12:20 | disposition home or self-care (01) | DRG 787 ==
LOC: LDRP 05:36 → WS 10:00
PROVIDERS: ADMIT Obstetrics & Gynecology; ATTEND Obstetrics & Gynecology
PROC: 10D00Z1 Extraction of Products of Conception, Low, Open Approach (ICD-10-PCS; principal; 2022-08-22 07:30)
DX: O34.211 Maternal care for low transverse scar from previous cesarean delivery (principal); D62 Acute posthemorrhagic anemia; Z3A.39 39 weeks gestation of pregnancy; Z37.0 Single live birth; O90.81 Anemia of the puerperium
CPT/HCPCS: 36415; 81000; 85025; 86850; 86900; 86901; 87088; 87491; 94664